=== PATIENT | female | born 1950 | race Caucasian/White ===

== ENCOUNTER → 2019-10-23 | Outpatient (CLI) | payer MEDICARE, BC | LOC: COL.RAD 09:00 | DX: M79.651 Pain in right thigh (principal) | CPT/HCPCS: J3301; Q9967 ==

== ENCOUNTER → 2019-12-13 | Outpatient (CLI) | payer MEDICARE, BC | LOC: COL.RAD 09:12 | DX: M79.18 Myalgia, other site (principal) | CPT/HCPCS: J3301; Q9967 ==